=== PATIENT | female | born 1990 | race Caucasian/White ===

== ENCOUNTER → 2017-01-07 | Outpatient (REF) | payer OTHER ==
[~2017-01-07] MED LIST: ACET50TA PO; IRON50TA PO; PRENTAB9 PO
[2017-01-07 15:43] LABS: PERCENT SATURATION 3.2 % (13.2-45.0)
== END ==
LOC: M LAB REF 13:28
PROVIDERS: ATTEND Internal Medicine Medical Oncology
DX: D50.9 Iron deficiency anemia, unspecified (principal)

== ENCOUNTER 2017-01-08 09:00 | Outpatient (CLI) | payer OTHER ==
[~2017-01-08] VITALS: Ht 170.2 cm; Wt 75.0 kg
[2017-01-08] MEDS ORDERED: PRENTAB9 PO (09:28)
[2017-01-08] MEDS ORDERED: IRON50TA PO (09:28)
[2017-01-08] MEDS ORDERED: ACET50TA PO (09:28)
[2017-01-08] MEDS ORDERED: MVI -ADULT INJECTION 10 ML VIAL IV ONE (09:45)
[2017-01-08 10:55] LABS: BASO % 0.1 % (0.0-1.0); EOS % 0.1 % (0.0-3.0); LARGE UNSTAINED CELL % 0.5 % (0.0-4.0); LYMPH # 0.3 K/mm3 (1.5-6.5); LYMPH % 3.6 % (24.0-44.0); MEAN CORPUSCULAR HEMOGLOBIN 22.8 pg (27.0-33.0); MEAN CORPUSCULAR HGB CONC 31.2 g/dl (32.0-36.5); MEAN CORPUSCULAR VOLUME 73.1 fl (80.0-96.0); MONO # 0.3 K/mm3 (0.0-0.8); MONO % 4.5 % (0.0-5.0); NEUTROPHILS # 5.7 K/mm3 (1.8-7.7); NEUTROPHILS % 91.3 % (36.0-66.0); PLATELET COUNT, AUTOMATED 137 k/mm3 (150-450); RED CELL DISTRIBUTION WIDTH 16.8 % (11.5-14.5); WHITE BLOOD COUNT 6.2 K/mm3 (4.0-10.0)
[2017-01-08] MEDS ORDERED: LR 1,000 ML IV SCH (11:00)
[2017-01-08] MEDS ORDERED: MULTIVITAMIN -ADULT INJECTION 10 ML in LR 1,000 ML IV SCH (11:00)
[2017-01-08 11:23] LABS: ANION GAP 11 MEQ/L (8-16); BLOOD UREA NITROGEN 8 MG/DL (7-18); CALCIUM LEVEL 7.6 MG/DL (8.5-10.1); CARBON DIOXIDE LEVEL 22 MEQ/L (21-32); CHLORIDE LEVEL 106 MEQ/L (98-107); CREATININE FOR GFR 0.42 MG/DL (0.55-1.02); GLOMERULAR FILTRATION RATE > 60.0 (>60); GLUCOSE, FASTING 92 MG/DL (70-105); POTASSIUM SERUM 3.2 MEQ/L (3.5-5.1); SODIUM LEVEL 139 MEQ/L (136-145)
--- NOTE | 2017-01-08 19:17 | HPE ---
DATE OF ADMISSION: 01/08/2017 25-year-old 3, para 1, abortio 1, last menstrual period (LMP) 08/08/2016, estimated date of delivery (EDC) 05/15/2017 at 22 weeks of gestation with a history of dehydration, flu, nausea, vomiting and diarrhea. Risk factors is she had a bypass surgery in 2011 and she has a history of GBS in her urine. PAST MEDICAL HISTORY: Her past history is in 2013 spontaneous delivery 39 weeks female, 6 pounds 12 ounces. She had a TOP with D C in 2012 at about 12 weeks. Labs are A+, HIV negative, hepatitis negative, RPR negative, rubella immune. Varicella immune. Urine GBS positive. Gonorrhea and chlamydia negative. Her blood pressure is 111/62, respirations are 18, pulse is 94 and temperature is 98.5. Urine is 10/25, pH is 5, +1 ketones and trace of protein. PHYSICAL EXAMINATION: On examination she appears to be pale, distressed, dehydrated. Mucous membranes are cracked. The rest of the examination is unremarkable. She has a heart present at 22 weeks. No contractions are noted. She is normocephalic, atraumatic. Neck: Full range of motion. Pupils equal and reactive to light. Distal pulses symmetric. No evidence of deep venous thrombosis (DVT), pulmonary embolism (PE) or superficial phlebitis. Chest is clear. No wheezes or rhonchi to the bases. No costovertebral angle (CVA) tenderness. Uterus is , four quadrant bowel sounds which are hyperactive. Moderate amount of skin secondary to bypass surgery and she does have scars from that. She has no rashes, lesions or pruritus. Mucous membranes are dry. No arthralgia or myalgia. No complaints of cough, wheezes, shortness of breath or dyspnea on exertion. No chest pain. No bleeding. Neuro complete. No incontinence, urgency, or frequency. She does have nausea, vomiting, diarrhea. She has no diabetic issues. GYNECOLOGIC HISTORY: Unremarkable. PAST MEDICAL HISTORY: Unremarkable. PAST SURGICAL HISTORY: Ramon-en-Y bypass. FAMILY HISTORY: Noncontributory. SOCIAL HISTORY: She does not smoke, drink, abuse drugs. There is no domestic violence. She is . SUMMARY: In summary we have a dehydrated 22-weeker with previous bypass surgery requiring rehydration, integration of her electrolytes and discharged to follow-up at the regular routine time. The patient and expressed understanding of the issues, asked about vitamins and in fact she should be taking her complement of multivitamin from her bypass surgery and those actually include a ferritin, B12, folate and some other interval electrolytes such as magnesium and calcium and she does not need any ancillary vitamins.
--- NOTE | 2017-01-10 12:40 | DSES ---
DATE OF ADMISSION: 01/08/2017 DATE OF DISCHARGE: 01/08/2017 This lady is a 25-year-old 3, para 1 came in with dehydration, flu, nausea, vomiting and diarrhea. She received the flu virus from her daughter. She has had risk factors as she has had bypass surgery in 2011 and she has had a urinary tract infection (UTI) with Group B streptococcus (GBS) which was test of cure was negative. When she came in she was pretty dehydrated, cramps, abdominal cramps with no nausea, vomiting or diarrhea at time. She was maintained on IV fluids with a 1 unit of MVI to rehydrate her. Her daily blood work shows her hemoglobin is 7.6, hematocrit 24.4 and platelets are 137. She is chronically anemic because she has had a bypass surgery and she has not been taking any of her multivitamins as prescribed. In her chemistry the only things were that her potassium was low at 3.2 and her calcium was low 7.6, this goes in function with her multivitamins which she is not taking and we suggested when she gets better that may be a banana or half a banana to improve her potassium content would be appropriate. The patient says she still having cramps and would prefer to go home and have cramps in her own home. We see no indication to keep her. heart is present on the monitor. There is no evidence of contractions or loss of fluid and the patient was discharged to followup with precautions and to followup with her regular appointment in two weeks' time. cc: [facility] Avel Merlos
== END 2017-01-08 14:05 | disposition home or self-care (01) ==
LOC: M LDO 09:00
PROVIDERS: ATTEND Obstetrics & Gynecology
DX: O99.89 Other specified diseases and conditions complicating pregnancy, childbirth and the puerperium (principal); Z3A.22 22 weeks gestation of pregnancy; O21.9 Vomiting of pregnancy, unspecified; O99.612 Diseases of the digestive system complicating pregnancy, second trimester; Z98.0 Intestinal bypass and anastomosis status; O99.112 Other diseases of the blood and blood-forming organs and certain disorders involving the immune mechanism complicating pregnancy, second trimester; O99.842 Bariatric surgery status complicating pregnancy, second trimester

== ENCOUNTER → 2017-02-10 | Outpatient (REF) | payer OTHER ==
[2017-02-10 10:42] LABS: PERCENT SATURATION 28.7 % (13.2-45.0)
== END ==
LOC: M LAB REF 10:13
PROVIDERS: ATTEND Internal Medicine Medical Oncology
DX: D50.9 Iron deficiency anemia, unspecified (principal)

== ENCOUNTER → 2017-04-11 | Outpatient (REF) | payer OTHER ==
[2017-04-11 14:23] LABS: PERCENT SATURATION 3.5 % (13.2-45.0)
== END ==
LOC: M LAB REF 13:11
PROVIDERS: ATTEND Internal Medicine Medical Oncology
DX: D50.9 Iron deficiency anemia, unspecified (principal)

== ENCOUNTER 2017-05-07 00:28 | Outpatient (CLI) | payer OTHER ==
[~2017-05-07] VITALS: Ht 170.2 cm; Wt 94.8 kg
[2017-05-07 00:41] VITALS: BP 118/71
[2017-05-07 01:28] VITALS: BP 116/72
[2017-05-07] MEDS ORDERED: CLEO300C2 PO (02:30)
--- NOTE | 2017-05-07 13:54 | HPE ---
DATE: 05/07/2017 This lady is 25-year-old, 3, para 1, aborto 1, LMP 08/08/2016, EDC 05/15/2017 at 31 and 5 for a toothache. Her risk factors is GBS positive in urines, had gastric bypass, has iron deficiency anemia and EPDS. LABORATORY DATA: A+, HIV negative, hep negative, RPR negative, rubella immune. Varicella immune. Pap normal. Urine was GBS positive. Gonorrhea and chlamydia were negative. GTT was not performed because of her bypass surgery. PAST HISTORY: 2012 at 39 weeks, 6 pounds 12 ounces female spontaneous vaginal delivery, therapeutic 2012. Urine 03/14, pH 6 negative. Temperature 98, blood pressure 118/71, respirations are 17, pulse is 79. On examination patient is in distress because of her toothache. No contractions. No loss of fluid. No vaginal bleeding. Category 1 strip. No contractions. No decelerations. No risk. The patient was discharged to the emergency department to deal with her toothache. cc: Howard Merlos
== END 2017-05-07 01:30 | disposition home or self-care (01) ==
LOC: M LDO 00:28
PROVIDERS: ATTEND Obstetrics & Gynecology
DX: O99.89 Other specified diseases and conditions complicating pregnancy, childbirth and the puerperium (principal); Z3A.38 38 weeks gestation of pregnancy; K08.89 Other specified disorders of teeth and supporting structures; Z98.84 Bariatric surgery status; D50.9 Iron deficiency anemia, unspecified

== ENCOUNTER 2017-05-07 01:40 | Emergency (ER) | payer OTHER ==
[~2017-05-07] VITALS: Ht 170.2 cm; Wt 93.6 kg
[2017-05-07 01:42] VITALS: BP 119/68
[2017-05-07] MEDS ORDERED: ONDANSETRON 4 MG ORAL DISINTEGRATING TAB (S0181) PO ONE (02:15)
[2017-05-07] MEDS ORDERED: LIDOCAINE W/EPINEPHRINE 1% 20ML VIAL SC ONE (02:15)
[2017-05-07] MEDS ORDERED: BUPIVACAINE HCL 0.5% 10 ML VIAL SC ONE (02:15)
[2017-05-07] MEDS ORDERED: CLINDAMYCIN 150 MG CAP PO ONE (02:30)
[2017-05-07] MEDS ORDERED: CLEO300C2 PO (02:30)
== END 2017-05-07 02:41 | disposition home or self-care (01) ==
LOC: M ED 01:40
DX: O99.613 Diseases of the digestive system complicating pregnancy, third trimester (principal); K08.89 Other specified disorders of teeth and supporting structures; Z3A.39 39 weeks gestation of pregnancy

== ENCOUNTER 2017-05-07 06:15 | Emergency (ER) | payer OTHER ==
[~2017-05-07] VITALS: Ht 170.2 cm; Wt 93.6 kg
[~2017-05-07 06:15] MED LIST changes: +CLEO300C2 PO
[2017-05-07] MEDS ORDERED: LIDOCAINE 2% JELLY 30 ML TOP ONE (07:15)
[2017-05-07 07:41] VITALS: BP 108/54
== END 2017-05-07 07:55 | disposition home or self-care (01) ==
LOC: M ED 06:15
DX: O99.613 Diseases of the digestive system complicating pregnancy, third trimester (principal); K08.89 Other specified disorders of teeth and supporting structures; Z3A.39 39 weeks gestation of pregnancy; Z98.0 Intestinal bypass and anastomosis status; Z79.2 Long term (current) use of antibiotics

== ENCOUNTER 2017-05-12 10:25 | Outpatient (CLI) | payer OTHER ==
[~2017-05-12] VITALS: Ht 170.2 cm; Wt 95.0 kg
[2017-05-12 10:42] VITALS: BP 116/70
--- NOTE | 2017-05-12 11:36 | IPNPDOC ---
Text Note Date of Service The patient was seen on 05/12/17. NOTE Tamiko is a with SIUP at 39w5d who presents with uterine cramping all morning. No LOF, no vaginal bleeding. Good movement. 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 SCE 3/80/-2, no regular ctx. Reassuring status. GBS positive. Plan: -safe for discharge -Keep next OB appt -encouraged hydration -return precautions discussed Dr. Noy Ricketts MD [place] [facility] VS,Fishbone, I+O VS, Fishbone, I+O Vital Signs Date Time Temp Pulse Resp B/P (MAP) Pulse Ox O2 Delivery O2 Flow Rate FiO2 05/12/17 10:42 97.6 89 18 116/70 (85) Room Air Noy Ricketts MD May 12, 2017 11:36
[2017-05-13] MEDS ORDERED: LIDOCAINE 2% INJ 100 MG/5 ML SDV (FOR ANES.) As Ordered ONE ×2 (08:18→08:37)
[2017-05-13] MEDS ORDERED: PROPOFOL 200 MG/20 ML VIAL As Ordered ONE ×3 (08:18→08:53)
== END 2017-05-12 11:40 | disposition home or self-care (01) ==
LOC: M LDO 10:25
PROVIDERS: ATTEND Obstetrics & Gynecology
DX: O47.1 False labor at or after 37 completed weeks of gestation (principal); Z3A.39 39 weeks gestation of pregnancy

== ENCOUNTER 2017-05-17 16:46 | Inpatient (IN) | payer OTHER ==
[~2017-05-17] VITALS: Ht 170.2 cm; Wt 97.2 kg
[2017-05-17 17:00] VITALS: BP 115/73
[2017-05-17] MEDS ORDERED: ACET50TA PO (17:38)
[2017-05-17] MEDS ORDERED: PENICILLIN G POTASSIUM IV 5 MU in D5W MINI-BAG PLUS 100 ML IV STA (18:15)
[2017-05-17] MEDS ORDERED: LR 1,000 ML IV SCH (18:30)
[2017-05-17] MEDS ORDERED: LACTATED RINGER'S 1000 ML IV ONE (18:30)
[2017-05-17 18:40] LABS: MEAN CORPUSCULAR HEMOGLOBIN 25.4 pg (27.0-33.0); PLATELET COUNT, AUTOMATED 231 10^3/uL (150-450); RED CELL DISTRIBUTION WIDTH 16.1 % (11.5-14.5); WHITE BLOOD COUNT 10.7 10^3/uL (4.0-10.0)
[2017-05-17] MEDS ORDERED: OXYTOCIN 30 UNITS IN 0.9% NaCl 500ML IV BAG (J2590) As Ordered ONE (19:16)
[2017-05-17] MEDS ORDERED: FENTANYL 2MCG/ML ROPIVACAINE 0.2% IN 0.9% NACL 200ML IVBAG As Ordered ONE (19:16)
[2017-05-17] MEDS ORDERED: LACTATED RINGER'S 1000 ML IV PRN (21:15)
[2017-05-17] MEDS ORDERED: FENTANYL/ROPIVACAINE/NACL BAG 200 ML EPIDURAL SCH (21:15)
[2017-05-17] MEDS ORDERED: ePHEDrine SULFATE 25 MG/5 ML(5MG/ML) SYRINGE IV PRN (21:15)
[2017-05-17] MEDS ORDERED: diphenhydrAMINE INJ 50MG/ML VIAL (J1200) IV PRN (21:15)
[2017-05-17] MEDS ORDERED: REFRIGERATOR IV KEYS XX PRN (21:15)
[2017-05-17] MEDS ORDERED: EPIDURAL COMMENT XX SCH (21:15)
[2017-05-17] MEDS ORDERED: EPIDURAL/PCA KEYS XX PRN (21:15)
[2017-05-17] MEDS ORDERED: ONDANSETRON 4MG/2ML VIAL (J2405) IV PRN (21:15)
[2017-05-17] MEDS ORDERED: NALOXONE INJ 0.4 MG/1 ML VIAL (J2310) IV PRN (21:15)
[2017-05-17] MEDS ORDERED: PENICILLIN G POTASSIUM IV 2.5 MU in APPROPRIATE DILUENT 1 EA IV SCH (22:30)
[2017-05-17] MEDS ORDERED: OXYTOCIN DRIP 30 UNITS in APPROPRIATE DILUENT 1 EA IV SCH (23:30)
[2017-05-18 00:54] LABS: CORD GAS ABE V -2.7; CORD GAS HCO3 V 20.3 MEQ/L; CORD GAS O2 SAT V 83.1 %; CORD GAS PCO2 V 30.8 mmHg; CORD GAS PH V 7.436 UNITS; CORD GAS PO2 V 35.6 mmHg; CORD GAS SBC V 21.8 MEQ/L; CORD GAS TCO2 V 21.2 MEQ/L
[2017-05-18 00:57] LABS: CORD GAS ABE A -1.4; CORD GAS HCO3 A 24.9 MEQ/L; CORD GAS O2 SAT A 47.9 %; CORD GAS PH A 7.333 UNITS; CORD GAS PO2 A 20.7 mmHg; CORD GAS SBC A 22.1 MEQ/L; CORD GAS TCO2 A 26.4 MEQ/L
[2017-05-18] MEDS ORDERED: DIBUCAINE 1% OINTMENT 30GM TOP PRN (01:00)
[2017-05-18] MEDS ORDERED: MEASLES,MUMPS,RUBELLA VACCINE INJ (MMR-II) (90707) SC SCH (01:00)
[2017-05-18] MEDS ORDERED: RHOGAM 300 MCG (1500 IU) INJ (J2790) IM SCH (01:00)
[2017-05-18] MEDS ORDERED: MOM 30ML SUSPENSION UDC PO PRN (01:00)
[2017-05-18] MEDS ORDERED: METHYLERGONOVINE MALEATE 0.2 MG TAB PO PRN (01:00)
[2017-05-18] MEDS ORDERED: DOCUSATE SODIUM 100 MG CAP PO PRN (01:00)
[2017-05-18] MEDS ORDERED: ANUSOL HC CREAM 30GM TOP PRN (01:00)
[2017-05-18] MEDS: IBUPROFEN 800 MG TAB PO PRN ×2 (03:06→10:40)
[2017-05-18 03:15] VITALS: BP 119/61
[2017-05-18] MEDS ORDERED: OXYTOCIN INJ 10 UNITS/ML VIAL (J2590) As Ordered ONE (04:39)
[2017-05-18] MEDS: ACETAMINOPHEN 500 MG TAB PO PRN ×2 (05:57→17:41)
[2017-05-18 06:00] VITALS: BP 108/61
[2017-05-18] MEDS: PRENATAL VITAMINS CHEWABLE TABLET PO SCH (09:08)
--- NOTE | 2017-05-18 10:24 | HPE ---
DATE OF ADMISSION: 05/17/2017 26-year-old 3, para 1, last menstrual period (LMP) 08/08/2016, estimated date of confinement (EDC) 05/15/2017, at 40 and 2 weeks of gestation in active labor, Group B Streptococcus (GBS) positive, 5 cm, occiput transverse, bulging membranes. RISK FACTORS: She is GBS positive, anemia, EPDS and has had gastric bypass. She is presently on antibiotics for a tooth. LABORATORIES: Shows A positive. HIV negative. Hepatitis negative. RPR negative. Rubella immune. Varicella immune. Pap normal. Urine GBS positive. Gonorrhea and chlamydia are negative. PAST HISTORY: 2013 at 39 weeks, 6 pound 12 ounce female, spontaneous vaginal delivery. 2013, POP at 10 weeks with dilatation and curettage. PHYSICAL EXAMINATION: Distressed female. Symphysis fundus height is 40, OT, vertex, 80%, -2.5 cm, bulging membranes. Urine is 1.000, pH 5, negative. Blood pressure 115/73. Respirations 18, pulse 92, temperature 97.8. The rest of her examination is unremarkable. She has a category 1 strip. Atraumatic. Neck full range of motions. Pupils equal and reactive to light. Distal pulses symmetric. No evidence of DVT, PE or superficial phlebitis. Lungs are clear bilaterally to the bases. No wheezes or rhonchi. No CVA tenderness. Four quadrant bowel sounds are noted. Surgical scars are noted. No rashes, lesions or pruritus. No arthralgia, myalgia. No complaints of cough, wheeze, shortness of breath or dyspnea on exertion. No chest pain. Not bleeding. Neuro complete. No incontinence. No urgency, frequency. No nausea, vomiting, diarrhea or constipation. She had no diabetic issues or dumping issues. She does have anemia because of her bypass. 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 No alcohol. No recreational drugs and no abuse. In summary we have a term gestation in active labor. Anticipate vaginal delivery. Planned for GBS positive prophylaxis. Artificial rupture of membranes (ARM) followed with epidural.
[2017-05-18] MEDS ORDERED: PERCOCET 5MG/325MG TAB PO ONE (12:30)
[2017-05-18 18:00] VITALS: BP 113/67
[2017-05-18] MEDS: PERCOCET 5MG/325MG TAB PO PRN (20:23)
[2017-05-18] MEDS ORDERED: SLF 3 ML SYR IV PRN (22:30)
[2017-05-19] MEDS: PERCOCET 5MG/325MG TAB PO PRN ×4 (00:40→17:29)
[2017-05-19 06:00] VITALS: BP 122/57
[2017-05-19] MEDS ORDERED: SLF 3 ML SYR IV SCH (06:00)
[2017-05-19 08:00] LABS: MEAN CORPUSCULAR HEMOGLOBIN 25.5 pg (27.0-33.0); MEAN CORPUSCULAR HGB CONC 31.3 g/dl (32.0-36.5); MEAN CORPUSCULAR VOLUME 81.4 fl (80.0-96.0); PLATELET COUNT, AUTOMATED 174 10^3/uL (150-450); RED CELL DISTRIBUTION WIDTH 16.2 % (11.5-14.5); WHITE BLOOD COUNT 9.8 10^3/uL (4.0-10.0)
[2017-05-19] MEDS ORDERED: INFLUENZA QUADRIVALENT PF VACCINE 0.5ML SYRINGE (90686) IM ONE (09:00)
[2017-05-19] MEDS: PRENATAL VITAMINS CHEWABLE TABLET PO SCH (09:00)
[2017-05-19] MEDS ORDERED: PRENTAB9 PO (11:50)
[2017-05-19] MEDS ORDERED: COLA100C5 PO (11:51)
--- NOTE | 2017-05-19 14:03 | IPN ---
DATE: 05/19/2017 26-year-old, 3, now para 2, admitted in labor at 40 and 2 weeks of gestation, spontaneous delivery of a male 8 pounds 9 ounces (3880 grams), score of 9 and 9 at one and five respectively. Arterial pH 7.33, base excess -1.4, venous pH 7.43, base excess -2.7. day #1 hemoglobin 9.6, hematocrit 31.0 and platelets are 231. She is known to have anemia because of her bypass surgery, and she was Group B streptococcus (GBS) positive. Her blood pressure today is 120-157, respirations 18, pulse 71, temperature is 98.4. We discussed phlebitis, cystitis, mastitis, endometritis and cellulitis, diet, exercise pain management, perineal, breast and wound care. She is having significant cramps with breast-feeding and she is tolerating that with using Percocet. She is planning on discharge tomorrow. She is planning on having a Mirena at 6-week checkup. In summary, we have a term +2 gestation delivered a live male doing well. Medications will be dispensed at discharge.
--- NOTE | 2017-05-20 17:48 | DN ---
DATE: 05/18/2017 This lady is a 3, para 1, admitted in active labor. Had a spontaneous vaginal delivery of a live- male infant with epidural in place over intact perineum, weighing 3880 grams, 8 pounds 9 ounces, scores of 9 and 9 at one and five minutes, respectfully. Arterial and venous pH performed. Placenta delivered spontaneously thereafter. Three-vessel cord, membranes, and tissues intact. Examination of vagina, anterior, posterior, lateral flores was intact. Sphincter was tight. No evidence of abnormality was noted. Uterus contracted well down on Pitocin. The patient and baby tolerating procedure well.
== END 2017-05-19 19:45 | disposition home or self-care (01) | DRG 775 ==
LOC: M LDO 16:46 → M LDI 18:15 → M OBS 05-18 03:10
PROVIDERS: ADMIT Obstetrics & Gynecology; ATTEND Obstetrics & Gynecology
PROC: 10E0XZZ Delivery of Products of Conception, External Approach (ICD-10-PCS; principal; 2017-05-18)
DX: O48.0 Post-term pregnancy (principal); Z37.0 Single live birth; Z3A.40 40 weeks gestation of pregnancy; O99.824 Streptococcus B carrier state complicating childbirth; D64.9 Anemia, unspecified; O99.02 Anemia complicating childbirth; O99.844 Bariatric surgery status complicating childbirth

== ENCOUNTER → 2017-05-20 | Outpatient (CLI) | payer OTHER ==
[~2017-05-20] MED LIST changes: +COLA100C5 PO; +LR 1,000 ML IV SCH
[2017-05-20 22:05] VITALS: BP 113/65
== END ==
LOC: M RROUT 21:04
PROVIDERS: ATTEND Anesthesiology
DX: G97.0 Cerebrospinal fluid leak from spinal puncture (principal)